=== PATIENT | male | born 1950 | race Caucasian/White ===

== ENCOUNTER 2020-09-25 10:12 | Outpatient (CLI) | payer MEDICARE, SELFPAY ==
--- NOTE | ~2020-09-25 | US_ITS ---
EXAMINATION: US aorta DATE: 09/25/2020 11:42 INDICATION: Abdominal aortic aneurysm. TECHNIQUE: Grayscale, color Doppler, and pulsed Doppler images of the aorta and common iliac arteries were obtained. COMPARISON: None. FINDINGS: The aorta demonstrates a 3.3 cm fusiform infrarenal aneurysm. The right common iliac artery demonstra isis a 3.0 cm fusiform aneurysm. The left common iliac artery demonstrates a 4.1 cm fusiform aneurysm. IMPRESSION: 1. 3.3 cm fusiform infrarenal aortic aneurysm. 2. 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 3. 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 Abdomen and pelvis CTA is recommended. Reviewed, dictated and finalized at location A.
--- NOTE | ~2020-09-25 | US_ITS ---
EXAMINATION: US retroperitoneal duplex ltd DATE: 09/25/2020 11:42 INDICATION: Renal artery aneurysm. TECHNIQUE: Multiple grayscale, color Doppler, and pulsed Doppler images of the kidneys and renal sherrill deidra were obtained. COMPARISON: None. FINDINGS: The kidneys are normal in size. There is a 10 mm cyst in left kidney. The aorta peak systolic velocit y is 70 cm/s. The right renal artery peak systolic velocity is 101 cm/s in the proximal segment, 94 c m/s in the mid segment, and 97 cm/s in the distal segment. The left renal artery peak systolic veloci ty is 81 cm/s in the mid segment and 110 cm/s in the distal segment. IMPRESSION: 1. No Doppler evidence of renal artery stenosis. 2. No renal artery aneurysm identified. Reviewed, dictated and finalized at location A.
== END 2020-09-25 10:13 | disposition home or self-care (01) ==
PROVIDERS: PCP Emergency Medicine; Visit Provider Emergency Medicine
DX: I72.2 Aneurysm of renal artery (principal); I71.4 Abdominal aortic aneurysm, without rupture; I72.3 Aneurysm of iliac artery
CPT/HCPCS: 76775; 93976

== ENCOUNTER 2020-10-03 07:26 | Outpatient (CLI) | payer MEDICARE, SELFPAY ==
--- NOTE | ~2020-10-03 | MR_ITS ---
EXAMINATION: MR brain/brain stem wo/w con EXAM DATE: 10/03/2020 09:05 INDICATION: Memory loss, gait abnormality, TIA. TECHNIQUE: Magnetic resonance imaging (MRI) of the brain/brain stem obtained without contrast. Sagit guanako T1, axial diffusion, gradient echo (T2*), T1, T2, FLAIR sequences obtained. Patient was then inj ected with 15 cc intravenous Multihance contrast. Axial and coronal postcontrast T1 weighted sequence s obtained. Comparison is made to prior examination from 09/03/2018. FINDINGS: Previously seen left small left centrum semiovale infarction now has a chronic appearance. There is small old left frontal lobe cortical infarction. There are no areas of restricted diffusion to suggest acute infarction. There is no acute hemorrhage seen on the T2*, a hemosiderin sensitive s equence. No intraparenchymal brain mass lesion. There is mild to moderate periventricular and subcor tical T2/FLAIR signal hyperintensity, nonspecific but probably related to small vessel ischemic disea se (microangiopathy). There is mild to moderate prominence of the sulci and ventricles related to c erebral atrophy. There are no extra-axial collections. Flow voids are seen in the cerebral arteries on the T2-weighted sequences consistent with their expected patency. Patient has had bilateral ocul ar lens surgery. Soft tissue is unremarkable. IMPRESSION: 1. No acute intracranial findings. 2. Chronic age related findings. 3. 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 Reviewed, dictated and finalized at location B.
[2020-10-03 08:35] LABS: Estimated Glomerular Filt Rate 60
== END 2020-10-03 07:27 | disposition home or self-care (01) ==
PROVIDERS: PCP Emergency Medicine; Visit Provider Emergency Medicine
DX: G45.9 Transient cerebral ischemic attack, unspecified (principal); R41.3 Other amnesia; R26.9 Unspecified abnormalities of gait and mobility
CPT/HCPCS: 70553; A9577

== ENCOUNTER → 2020-10-12 13:12 | Outpatient (CLI) | payer MEDICARE, SELFPAY ==
--- NOTE | ~2020-10-12 | CT_ITS ---
EXAMINATION: CTA abdomen pelvis DATE: 10/12/2020 14:07 INDICATION: Aneurysm of the iliac artery. No abdominal aortic aneurysm. TECHNIQUE: Computed tomographic angiography (CTA) of the abdomen and pelvis was performed with 100 mL Omnipaque-350 intravenous contrast. Automated exposure control and iterative reconstruction techniqu e were employed. The dose-length product was 626.24 mGy-cm. Maximum intensity projection 3D-reconstru ctions of the aorta and other arteries were constructed by the technologist on a separate workstation . COMPARISON: Ultrasound 09/25/2020 FINDINGS: The visualized portions of the lung bases demonstrate mild atelectasis. No pleural effusion . The heart size is normal. There are coronary artery calcifications. There are calcifications of the aortic valve. The liver, gallbladder, spleen, and adrenal glands are normal. There are calcification s in the pancreas, consistent with chronic pancreatitis. Right kidney is normal. There is a 5 mm cyst in left kidney. The prostate is mildly enlarged. There are no dilated loops of bowel. The appendix i s normal. There is mild stenosis of celiac axis. There is no significant stenosis of superior mesente macario artery, the renal arteries, or inferior mesenteric artery. There is no abdominal aortic aneurysm. 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 There is a 4.3 cm fusiform aneurys m of left common iliac artery. There are chronic bilateral L5 pars defects. There is 4 mm anterolisth esis of L5 on S1. There is moderate lumbar spondylosis. IMPRESSION: 1. 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 2. 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 Vascular surgical consultation is recommende d. Reviewed, dictated and finalized at location B. IMPRESSION: 1. 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 2. 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 Vascular surgical cons ultation is recommended.
[2020-10-12 13:51] LABS: Estimated Glomerular Filt Rate > 60
== END ==
PROVIDERS: PCP Emergency Medicine; Visit Provider Emergency Medicine
DX: I72.3 Aneurysm of iliac artery (principal)
CPT/HCPCS: 74174; Q9967

== ENCOUNTER 2021-08-23 07:46 | Outpatient (CLI) | payer MEDICARE, SELFPAY ==
--- NOTE | ~2021-08-23 | MR_ITS ---
EXAMINATION: MR brain/brain stem wo/w con EXAM DATE: 08/23/2021 09:24 INDICATION: abnormality of gait, liver disease . TECHNIQUE: Magnetic resonance imaging (MRI) of the brain/brain stem obtained without contrast. Sagit guanako T1, axial diffusion, gradient echo (T2*), T1, T2, FLAIR sequences obtained. Patient was then inj ected with 15 cc intravenous Multihance contrast. Axial and coronal postcontrast T1 weighted sequence s obtained. Comparison is made to prior examination from 10/03/2020. FINDINGS: Chronic left small left centrum semiovale infarction. There is small old left frontal lobe cortical infarction. There are no areas of restricted diffusion to suggest acute infarction. There i s no acute hemorrhage seen on the T2*, a hemosiderin sensitive sequence. No intraparenchymal brain m ass lesion. There is moderate periventricular and subcortical T2/FLAIR signal hyperintensity, nonspe cific but probably related to small vessel ischemic disease (microangiopathy). There is ventricular prominence out of proportion to sulci which is suspected most likely central atrophy rather than hyd rocephalus. Normal pressure hydrocephalus cannot be excluded (clinical triad ataxia/gait disturbance , dementia, urinary incontinence). There are no extra-axial collections. Flow voids are seen in th e cerebral arteries on the T2-weighted sequences consistent with their expected patency. Patient has had bilateral ocular lens surgery. Soft tissue is unremarkable. There are no areas of abnormal enh ancement on the postcontrast images. IMPRESSION: 1. No acute intracranial findings. 2. Chronic age related findings. 3. 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 Reviewed, dictated and finalized at location G.
[2021-08-23 09:02] LABS: Estimated Glomerular Filt Rate > 60
== END 2021-08-23 07:47 | disposition home or self-care (01) ==
LOC: ANHIMG 07:50
PROVIDERS: PCP Emergency Medicine; Visit Provider Emergency Medicine
DX: R26.9 Unspecified abnormalities of gait and mobility (principal); K76.9 Liver disease, unspecified
CPT/HCPCS: 70553; A9577

== ENCOUNTER 2021-08-30 06:36 | Outpatient (CLI) | payer MEDICARE, SELFPAY ==
--- NOTE | ~2021-08-30 | MR_ITS ---
EXAMINATION: MR abdomen wo/w con DATE: 08/30/2021 08:26 INDICATION: Cirrhosis of the liver. TECHNIQUE: Magnetic resonance imaging (MRI) of the abdomen was performed without and with 15 mL Multi Jossy intravenous contrast. Sequences included coronal T2-weighted FS FSE, coronal and axial FS FIEST A, axial T2-weighted FSE, coronal LAVA-flex, axial STIR FSE, axial DWI, axial dual-echo T1-weighted F SPGR, and axial LAVA. Postcontrast sequences included coronal LAVA-flex and a time course of axial LA VA. COMPARISON: CT abdomen and pelvis 10/12/2020 FINDINGS: The liver demonstrates volume loss of medial segment of left hepatic lobe and surface nodularity, con sistent with cirrhosis. No abnormal arterial hyperenhancement to suggest malignancy. The gallbladder is normal. Pancreas divisum is noted. The spleen and adrenal glands are normal. There are cysts in th e kidneys measuring up to 13 mm on the left. There are no dilated loops of bowel. There is a stent gr aft in abdominal aorta and the common iliac arteries. Abdominal aorta is normal in caliber. Partially visualized are fusiform aneurysms of the common iliac arteries. The right common iliac artery measur es 2.8 cm. The left common femoral artery measures 3.1 m. IMPRESSION: 1. Cirrhosis of the liver. Reviewed, dictated and finalized at location A. IMPRESSION: 1. Cirrhosis of the liver.
== END 2021-08-30 06:37 | disposition home or self-care (01) ==
LOC: ANHIMG 06:41
PROVIDERS: PCP Emergency Medicine; Visit Provider Emergency Medicine
DX: K74.60 Unspecified cirrhosis of liver (principal)
CPT/HCPCS: 74183; A9577

== ENCOUNTER 2024-02-15 09:50 | Emergency (ER) | payer MEDICARE, SELFPAY ==
--- NOTE | ~2024-02-15 | XR_ITS ---
EXAMINATION: XR chest 2V DATE: 02/15/2024 12:29 INDICATION: Cough and congestion TECHNIQUE: frontal and lateral views of the chest were obtained. COMPARISON: None FINDINGS: The lungs are clear with no focal airspace opacities, pulmonary edema, pleural effusion or pneumothor ax. The cardiomediastinal silhouette is normal. Visualized bones and soft tissues are unremarkable. IMPRESSION: 1. No acute cardiopulmonary disease. Reviewed, dictated and finalized at location A.
[2024-02-15 11:51] VITALS: BP 95/67; PULSE 69; RESP 17; TEMP 36.8; O2SAT 94
[2024-02-15 11:52] VITALS: BP 105/70; PULSE 65; RESP 15; O2SAT 93
[2024-02-15 11:56] VITALS: BP 101/68; PULSE 64; RESP 17; O2SAT 92
[2024-02-15 12:00] VITALS: BP 108/68; PULSE 61; RESP 14; O2SAT 93
[2024-02-15 12:15] LABS: Basophils Percent Auto 0.5 % (0.2-1.2); Eosinophils Absolute Auto 0.3 K/mm3 (0-0.3); Eosinophils Percent Auto 3.8 % (0-4.4); Hemoglobin 13.2 g/dL (14.0-18.0); Immature Granulocyte Absolute 0.03 K/mm3 (0.00-0.031); Immature Granulocyte Percent A 0.5 % (0-0.5); Immature Platelet Fraction Pct 3.5 % (0.9-11.2); Lymphocytes Absolute Auto 1.68 K/mm3 (0.9-3.2); Lymphocytes Percent Auto 25.8 % (18.3-44.2); Mean Corpuscular Hemoglobin 30.6 pg (26-34); Mean Corpuscular Volume 92.8 fl (80-100); Mean Platelet Volume 9.6 fl (7.4-10.4); Monocytes Absolute Auto 0.9 K/mm3 (0.1-0.6); Monocytes Percent Auto 14.5 % (2.6-8.5); Neutrophils Absolute Auto 3.6 K/mm3 (1.3-6.7); Neutrophils Percent Auto 54.9 % (45.5-73.1); Platelet Count Result 133 k/mm3 (150-375); Red Blood Count 4.31 M/mm3 (4.6-6.20); Red Cell Distribution Width 13.5 % (11.5-14.5); White Blood Count 6.5 K/mm3 (4.5-10.0)
--- NOTE | 2024-02-15 12:18 | ED.MALEGU ---
HPI - Male Genitourinary General Chief complaint: Urogenital-Male Stated complaint: runny nose, cough Time Seen by Provider: 02/15/24 11:15 History of Present Illness HPI Narrative: 73-year-old male with history of Parkinson's presenting with urinary frequency. His is at bedside and helps with the history. For the last few days he has been urinating more frequently than normal. States that he has also seemed weaker than normal. He has had a cough and runny nose. They called their Parkinson's disease center who told them to come in for evaluation. No chest pain or shortness of breath. No abdominal pain, nausea vomiting, diarrhea. No leg swelling. Denies dysuria or hematuria. No fevers. No focal numbness or weakness. Related Data Home Medications Medication Instructions Recorded Confirmed alprazolam 0.25 mg tablet (Xanax) 0.25 mg PO DAILY 05/18/19 aspirin 325 mg tablet 325 mg PO DAILY 05/18/19 cyclobenzaprine 10 mg tablet 10 mg PO BID PRN 05/18/19 rosuvastatin 10 mg tablet (Crestor) 10 mg PO DAILY 05/18/19 Allergies Allergy/AdvReac Type Severity Reaction Status Date / Time No Known Allergies Allergy Verified 10/02/20 09:47 Review of Systems Review of Systems: All systems reviewed & are unremarkable except as noted in HPI and below [facility] Past Medical History Medical History History of cataract Stroke Family History Family History Mother Family history of aortic aneurysm Father Family history of congestive heart failure, Onset Age: 73 Father Congestive heart failure Mother Abdominal aortic aneurysm Social History Social History Smoking status: Never smoker Exam Narrative: GENERAL: Nontoxic, no acute distress, pleasant cooperative HEAD: Normocephalic, atraumatic. EYES: PERRLA and EOMI. ENT: + rhinorrhea NECK: Supple. CHEST: Clear to auscultation. No respiratory distress. HEART: Regular rate and rhythm ABDOMEN: Soft, nontender, nondistended EXTREMITIES: Normal range of motion. No edema. SKIN: Warm, dry, no rash. NEURO: No focal deficits. Alert and oriented x3. PSYCH: Normal mood and affect. Course Vital Signs Vital signs: Vital Signs Temperature 98.3 F 02/15/24 11:51 Pulse Rate 69 02/15/24 11:51 Respiratory Rate 17 02/15/24 11:51 Blood Pressure 95/67 L 02/15/24 11:51 Pulse Oximetry 94 02/15/24 11:51 Temperature 98.3 F 02/15/24 11:51 Pulse Rate 75 02/15/24 13:00 Respiratory Rate 14 02/15/24 13:00 Blood Pressure 108/68 02/15/24 12:00 Pulse Oximetry 95 02/15/24 13:00 MDM - Male Genitourinary MDM Narrative Medical decision making narrative: 73-year-old male presenting with urinary frequency, cough, generalized weakness. Vital signs within normal limits. Exam remarkable for the above. Blood work with elevated BUN to creatinine ratio. Remainder of lab work is unremarkable. Chest x-ray without acute findings. UA is not infected. Negative for COVID influenza. Patient received a L of fluids. Suspect he may just be feeling a bit weak from some mild dehydration. Discussed drinking more hydrating fluids and appropriate supportive care. Recommend close PCP follow-up. Appropriate return precautions given. He and his were agreeable this plan. Discharged in stable condition. Differential Diagnosis Differential diagnosis: Likely urinary tract infection and other (Dehydration, COVID, pneumonia, weakness) Medical Records Attestation: I reviewed the patient's medical records. Lab Data Attestation: I reviewed the patient's lab results. 02/15/24 12:07 02/15/24 12:07 Labs: Lab Results 02/15/24 02/15/24 Range/Units 12:07 12:30 WBC 6.5 (4.5-10.0) K/mm3 RBC 4.31 L (4.6-6.20) M/mm3 Hgb 13.2 L (14.0-18.0
[2024-02-15 12:23] LABS: Alkaline Phosphatase 33 U/L (38-126); Anion Gap 9 mmol/L (4-12); Aspartate Amino Transferase 25 U/L (17-59); Bilirubin,Total 0.7 mg/dL (0.2-1.3); Blood Urea Nitrogen 30 mg/dL (9-20); Calcium 9.5 mg/dL (8.4-10.2); Carbon Dioxide 28 mmol/L (22-30); Chloride 101 mmol/L (98-107); Estimated CRCL calculation 73 ml/min; Estimated Glomerular Filt Rate > 60; Glucose 87 mg/dL (65-110); Potassium 4.4 mmol/L (3.4-5.0); Sodium 138 mmol/L (137-145)
[2024-02-15 12:24] LABS: Alanine Aminotransferase < 6 U/L (6-50)
[2024-02-15] MEDS: SODIUM CHLORIDE 0.9% IV 1,000 ML 999 ML IV CONT (12:32)
[2024-02-15 12:40] LABS: Add Urine Microscopic? NO; Appearance Urine Clear (Clear); Bilirubin Urine Negative (Negative); Blood Urine Negative (Negative); Color Urine Yellow (Yellow); Glucose Urine UA Negative (Negative); Ketones Urine Trace mg/dL (Negative); Leukocyte Esterase Ur Negative LEU/UL (Negative); Nitrate Urine Negative (Negative); Protein Urine Negative (Negative); pH Urine 6.5 (5.0-9.0)
[2024-02-15 12:51] LABS: Influenza A QL RT-PCR Negative (Negative); Influenza B QL RT-PCR Negative (Negative); RSV RNA, RT-PCR Negative (Negative); SARS-CoV-2 RNA PCR Negative (Negative)
[2024-02-15 13:00] VITALS: PULSE 75; RESP 14; O2SAT 95
[2024-02-15 13:45] VITALS: BP 110/68; PULSE 59; RESP 14; TEMP 36.6; O2SAT 96
== END 2024-02-15 14:24 | disposition home or self-care (01) ==
PROVIDERS: Emergency Provider Emergency Medicine; PCP Emergency Medicine
DX: E86.0 Dehydration (principal); R53.1 Weakness; Z20.822 Contact with and (suspected) exposure to COVID-19; Z86.73 Personal history of transient ischemic attack (TIA), and cerebral infarction without residual deficits
CPT/HCPCS: 36415; 71046; 80053; 81003; 85025; 85055; 87637; 96360; 99283; J7030